=== PATIENT | male | born 1950 | race Hispanic/Latino ===

== ENCOUNTER → 2021-02-26 | Outpatient (CLI) | payer MEDICARE | LOC: US 08:14 | PROVIDERS: ATTEND Nurse Practitioner Primary Care | DX: R74.01 Elevation of levels of liver transaminase levels (principal) | CPT/HCPCS: 76700 ==

== ENCOUNTER → 2021-05-09 | Outpatient (CLI) | payer MEDICARE | LOC: MRI 10:47 | PROVIDERS: ATTEND Nurse Practitioner Primary Care | DX: M25.462 Effusion, left knee (principal) ==